=== PATIENT | male | born 1955 | race Caucasian/White ===

== ENCOUNTER 2021-03-23 13:30 | Emergency (ER) | payer MEDICAID, SELFPAY ==
[2021-03-23] VITALS (8 sets, daily range): BP systolic 101–142; BP diastolic 84–95; PULSE 110–119; RESP 16–22; TEMP 36.9–37.5; O2SAT 93–100; BMI 17.8
--- NOTE | 2021-03-23 13:40 | XR_ITS ---
WS: [id number] XR chest 1V portable [id number] REASON FOR EXAM: reduced breath sounds. FINDINGS: Mild to moderate tortuosity the thoracic aorta without aneurysmal dilatation. Normal heart size. There is calcified granulomatous disease in both hemithoraces. No active pulmonary parenchymal or ple ural disease is noted. The bony thorax is intact. Mild degenerative change in the lower and mid thoracic spine. XR/XR chest 1V portable [id number] IMPRESSION: No acute chest abnormality.
--- NOTE | 2021-03-23 13:46 | CTR_ITS ---
PROCEDURE INFORMATION: Exam: CTA Angiogram of the Abdominal Aorta and Bilateral Lower Extremities (Run-off) With IV Contrast Exam date and time: 03/23/2021 1:46 PM Age: 65 years old Clinical indication: Discoloration or erythema; Right; Patient HX: Necrosis of RT foot. Patient poor historian. ; Additional info: Right foot necrosis TECHNIQUE: Imaging protocol: CT angiogram of the abdominal aorta, pelvis and bilateral lower extremities with IV iodinated contrast. 3D rendering (Not supervised by radiologist): MIP and/or 3D reconstructed images were created by the technologist. Radiation optimization: All CT scans at this facility use at least one of these dose optimization techniques: automated exposure control; mA and/or kV adjustment per patient size (includes targeted exams where dose is matched to clinical indication); or iterative reconstruction. Contrast material: VISI 320; Contrast volume: 95 ml; Contrast route: INTRAVENOUS (IV); COMPARISON: CR XR chest 1V portable [id number] 03/23/2021 2:01 PM RADIATION DOSE METRICS: Total DLP (mGy-cm): 751.93 FINDINGS: Aorta: Mild calcified and mild to moderate noncalcified plaque. No occlusion, thrombosis, stenosis, extravasation, dissection, or aneurysm. Celiac trunk and mesenteric arteries: Mild calcified plaque. No occlusion, thrombosis, stenosis, extravasation, dissection, or aneurysm. Renal arteries: Moderate noncalcified plaque at the right renal artery origin with up to 90% stenosis. Moderate calcified plaque with 50% stenosis at the origin of the left renal artery. No occlusion, thrombosis, extravasation, dissection, or aneurysm. Right iliac arteries: Mild to moderate calcified and noncalcified plaque. Up to 50% stenosis of the posterior branch of the internal iliac artery. No occlusion, thrombosis, extravasation, dissection, or aneurysm. Right femoral/popliteal arteries: Moderate calcified and noncalcified plaque. 60% stenosis in the proximal femoral artery. Diffuse irregularity of the remainder of the femoral artery. The distal femoral artery is occluded (series 3, images 275-294). Popliteal artery is reconstituted just above the level of the knee joint. There is diffuse moderate irregularity with multiple stenoses of up to 70%. Right infrapopliteal arteries: Moderate to severe calcified and noncalcified plaque. 30% stenosis at the origin of the anterior tibial artery. Up to 95% stenosis of the tibioperoneal trunk. The peroneal artery is visualized to the lower aspect of the left calf. Moderate irregularity of the posterior tibial artery. Single-vessel runoff to the right foot via the posterior tibial artery. No occlusion, thrombosis, extravasation, dissection, or aneurysm. Left iliac arteries: Mild to moderate calcified and noncalcified plaque. 30% stenosis of the left internal iliac artery. No occlusion, thrombosis, extravasation, dissection, or aneurysm. Left femoral/popliteal arteries: Moderate calcified and mild noncalcified plaque. 85-90% stenosis of the distal left femoral artery. 60% stenosis of the popliteal artery proximally and up to 90% stenosis distally. No occlusion, thrombosis, extravasation, dissection, or aneurysm. Left infrapopliteal arteries: Moderate calcified and noncalcified plaque. 75% stenosis of the origin of the anterior tibial artery. 70% stenosis of the tibioperoneal trunk. Diffuse irregularity of the peroneal and posterior tibial arteries. Peroneal artery visualized to the distal aspect of the left calf. Single-vessel runoff to the left foot via the posterior tibial artery. No occlusion, thrombosis, extravasation, dissection, or aneurysm. Lungs: Multiple areas of pleural-parenchymal scarring in the right middle lobe and left lingula. Noncalcified nodule in the right middle lobe with an average measurement of 8 mm (series 3, image 17). Pleural space: No pleural effusion. Heart: Visualized portions of the heart are mildly enlarged. Liver: The liver is unremarkable. Gallbladder and bile ducts: The gallbladder is unremarkable. No biliary ductal dilatation. Pancreas: The pancreas is unremarkable. No pancreatic ductal dilatation. Spleen: The spleen is unremarkable. Amorphous calcification in the right adrenal gland that Adrenals: Amorphous calcification in the right adrenal gland that may represent sequela of remote trauma.The left adrenal gland is unremarkable. Kidneys and ureters: The right and left kidneys are unremarkable. The distal right and left ureters are obscured by adjacent bowel loops and soft tissue structures. The visualized portions of the ureters are unremarkable. Stomach and bowel: Increased fecal content in the colon. No gross abnormality in the stomach, small bowel, or colon. Possible bowel perforation cannot be ruled out however. Appendix: The appendix is visualized and is unremarkable. No evidence to suggest appendicitis. Bladder: Air in the lumen of the bladder and extensive air in the wall of the bladder, consistent with emphysematous cystitis. Reproductive: The prostate gland is moderately enlarged. Nonspecific parenchymal calcifications in the prostate gland. Right and left testes are unremarkable as visualized. There are calcifications in the penile shaft. Intraperitoneal space: Few small foci of air in the lower abdomen anteriorly. Lymph nodes: No lymphadenopathy. Bones/joints: Moderate degenerative changes at both the right and left hips. Multilevel degenerative changes of varying severity in the visualized spine. Soft tissues: Few small foci of subcutaneous emphysema are seen at the base of the penile shaft (series 3, image 181). More extensive soft tissue and subcutaneous emphysema in the right foot extending from the 4th and 5th toes proximally along the ventral aspect of the foot to the level of the calcaneus (series 3, images 473-526). CT/CT angio abd aorta runof [id number] IMPRESSION: 1. Few small foci of subcutaneous emphysema are seen at the base of the penile shaft More extensive soft tissue and subcutaneous emphysema in the right foot extending from the 4th and 5th toes proximally along the ventral aspect of the foot to the level of the the calcaneus. 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 2. Air in the lumen of the bladder and extensive air in the wall of the bladder, consistent with emphysematous cystitis. 3. Few small foci of air in the lower abdomen anteriorly. Etiology is uncertain, possible bowel perforation cannot be ruled out however. 4. Atherosclerotic disease of varying severity ranging from mild to severe. Occlusion of the distal right femoral artery with reconstitution of the right popliteal artery just above the knee joint. Multilevel stenoses of varying severity in the abdomen and both lower extremities. Single-vessel runoff to both feet via the posterior tibial arteries. 5. Noncalcified nodule in the right middle lobe with an average measurement of 8 mm.For patients at low risk (minimal or absent history of smoking and of other known risk factors), recommend CT Chest at 3-6 months, then consider CT Chest at 18-24 months. For patients at high risk (history of smoking or of other known risk factors), recommend CT Chest at 3-6 months, then CT Chest at 18-24 months. (Reference: Honey) 6. Incidental/nonacute findings are listed in the report. COMMENTS: THIS REPORT CONTAINS FINDINGS THAT MAY BE CRITICAL TO PATIENT CARE. The findings were verbally communicated via telephone conference with RICHARDSON Isidro at 5:59 PM CDT on 03/23/2021. The findings were acknowledged and understood. REFERENCES: Honey Dickinson, et al. Guidelines for Management of Incidental Pulmonary Nodules Detected on CT Images: From the Fleischner Society 2017. Radiology. 2017;284(1):228-243. Radiation Dose CTDIVOL = (mGy): DLP = 751.93 (mGy-cm)
[2021-03-23 14:06] LABS: Basophils # 0.1 10^3/uL (0.0-0.1); Basophils % 0.2 %; Hematocrit 37.8 % (42.0-52.0); Hemoglobin 12.5 g/dL (11.7-16.6); Lymphocytes # 1.6 10^3/uL (0.8-4.8); Lymphocytes % 5.3 %; Mean Corpuscular HGB Conc 33.1 g/dL (30.0-36.0); Mean Corpuscular Hemoglobin 29.3 pg (28.0-34.0); Mean Corpuscular Volume 88.5 fL (80-94); Mean Platelet Volume 10.9 fL (7.4-10.4); Monocytes # 1.2 10^3/uL (0.2-0.9); Neutrophils # 26.89 10^3/uL (1.8-7.7); Neutrophils % 89.7 %; Nucleated Red Blood Cells % 0 %; Platelet Count 389 10^3/cmm (130-400); Red Blood Count 4.27 10^6/uL (4.1-5.3); Red Cell Distribution Width 12.7 % (12.1-15.1)
[2021-03-23 14:16] LABS: INR 1.15 (0.8-1.2)
[2021-03-23 14:22] LABS: Lactic Sepsis W/Reflex 1.6 mmol/L (0.5-2.2)
[2021-03-23] MEDS: piperacillin-tazobactam 3.375 GM in sodium chloride 0.9% (plus) 50 ML IV (14:34)
[2021-03-23 14:35] LABS: Alanine Aminotransferase 21 U/L (0-41); Albumin Level 3.4 g/dL (3.5-5.2); Alkaline Phosphatase 170 IU/L (40-130); Anion Gap 21.5 (5-19); Aspartate Amino Transferase 23 U/L (0-40); Blood Urea Nitrogen 23 mg/dL (8-23); Calcium 9.7 mg/dL (8.5-10.5); Carbon Dioxide 19 mmol/L (22-29); Chloride 92 mmol/L (98-107); Creatine Phosphokinase 221 U/L (39-308); Globulin 4.6 g/dL (1.3-4.6); Glomerular Filtration Rate 46.7 mL/min (90-130); Glucose 326 mg/dL (65-115); NT Pro B Type Natriuretic Pept 1170 pg/mL (0-125); Osmolality Calculated 282 mOsm/kg (285-295); Potassium 4.5 mmol/L (3.5-5.1); Sodium 128 mmol/L (136-145); Thyroid Stimulating Hormone 1.51 uIU/mL (0.27-4.20); Total Bilirubin 0.6 mg/dL (0.15-1.2)
[2021-03-23] MEDS: vancomycin 1,000 MG in sodium chloride 0.9% 250 ML 250 MG IV (14:59)
--- NOTE | 2021-03-23 15:33 | PC.NURSE ---
pt vaece, power of trust and estates attorney called with update and reports she will be available by phone as needed.
[2021-03-23] MEDS: sodium chloride 0.9% 1,000 ML 999 ML IV ×2 (15:39→18:06)
[2021-03-23 15:57] LABS: SARS Covid-2 Antigen Negative (Negative)
--- NOTE | 2021-03-23 16:12 | PC.PHAR ---
PT UNABLE TO VERIFY MEDICATIONS-MEDICATIONS ENTERED ARE MEDS THAT SHOW HAVE BEEN FILLED RECENTLY ON EXT MED HISTORY-NOTES ARE MADE IN THE PHARMACY COMMENTS
[2021-03-23] MEDS: iodixanol 320 mg/mL 100mL Btl IV (16:49)
--- NOTE | 2021-03-23 18:23 | ECG_ITS ---
[facility] Test Date: 2021-03-23 Pat Name: Corey Oakley Department: Room: Gender: Male Equip Maint Eng: : 1955 Requested By: Gonzalo Miles Order Number: [id number] Barkley MD: Eliana Summers M.D. Measurements Intervals [place] Rate: 108 P: 69 OR: 169 QRS: -35 QRSD: 104 T: 90 QT: 324 QTc: 436 Interpretive Statements SINUS TACHYCARDIA MARKED LEFT AXIS DEVIATION [QRS AXIS < -30] No previous ECG available for comparison Electronically Signed On 03-23-2021 22:07:16 CDT by Eliana Summers M.D. [id number]
--- NOTE | 2021-03-23 19:02 | PC.NURSE ---
18 F Eugene catheter placed with blood return.
[2021-03-23] MEDS: clindamycin 900 MG/50 ML PREMIX 100 MG IV (19:08)
[2021-03-23 19:28] LABS: Bilirubin Urine Neg (Negative); Blood Urine 3+ (Negative); Glucose Urine UA 4+ (Normal); Ketones Urine Negative (Negative); Leukocyte Esterase Urine Negative (Negative); Nitrate Urine Negative (Negative); Protein Urine 2+ (Negative); Specific Gravity, Urine 1.005 (1.005-1.030); Urine Appearance Cloudy (CLEAR); Urine Color Red (Yellow); Urobilinogen Urine Norm (Negative); pH Urine 6.5 (5-7)
[2021-03-23 19:29] LABS: Add Urine Culture? Yes; Add Urine Microscopic? YES; Bacteria Urine 1+ /hpf; RBC Urine TOO NUMEROUS TO CNT /hpf (0-2)
--- NOTE | 2021-03-23 20:18 | W.ED.WOUNDLC ---
HPI - Wound/Laceration General: Chief Complaint: Wound/Laceration Stated Complaint: R FOOT NECROSIS Time Seen by Provider: 03/23/21 13:37 History of Present Illness: HPI narrative: The patient is a 65-year-old male with past medical history dementia who lives at home who comes to the ER by ambulance. The report is they found him with excrement and urine which she has been sitting in which looked like for a while. They also noted black right toes. He does have dry gangrene to his fourth and fifth toe and lateral aspect of his right foot. Difficult to palpate DP and PT pulses bilaterally with cool feet. There is cap refill that is 5 to 7 seconds in the toes other than the black toes. He is cachectic. He is talking and making some sense at times other times not making sense perhaps at his baseline dementia. Discussion with his medical power of personal injury attorney reveals she wants everything done for him except chemo and radiation which is on his advanced directive. He is not able to answer. She says she does not know how long the toes have look like that but checked on him approximately a month ago and they were not that way. She says he has home health workers to come check on him periodically and they have not reported to her any changes. Review of Systems General: Reports: ROS unobtainable due to mental status (Chronic dementia) Physical Exam Narrative: EXAM NARRATIVE: The patient has crusted excrement between his legs and has been there for some time. Right fourth and fifth toes and lateral aspect of the right foot nearly black with dry gangrene. Proximal to that an area of cellulitis is seen with mild swelling. He is cachectic. Tachycardic. He has chronic dementia and unknown what his baseline is but he is able to talk some but not nearly making much sense. Const: COMMON NORMALS: alert GENERAL APPEARANCE: cooperative and disheveled NUTRITIONAL APPEARANCE: cachectic ORIENTATION/CONSCIOUSNESS: Yes awake HENMT: COMMON NORMALS: normocephalic, external ears normal and Normal external nose present HEAD & SCALP: normal to inspection and normocephalic NOSE: Normal external nose present EXTERNAL EAR: Yes external ears normal MOUTH: Normal oral and palatal mucosa present THROAT: posterior oropharynx normal Eye: COMMON NORMALS: Equal, round and reactive pupils present and EOMs intact bilaterally GENERAL EYE: appearance normal, both eyes and all related structures PUPIL: Yes Equal, round and reactive pupils present Neck/C-Spine: COMMON NORMALS: full ROM, no lymphadenopathy, no meningeal signs and no JVD GENERAL: Yes normal visual inspection Lymph: LYMPHATIC: no lymphadenopathy noted Chest: COMMONS NORMALS: normal inspection of the chest and normal palpation of entire chest wall Resp: COMMON NORMALS: normal respiratory effort, No retractions, No use of accessory muscles, clear to auscultation bilaterally and percussion normal EFFORT & INSPECTION: Yes able to speak in complete sentences AUSCULTATION: clear to auscultation bilaterally PERCUSSION: percussion normal Cardio: COMMON NORMALS: no JVD, regular rhythm, S1 normal heart sound present, S2 normal heart sound present and Peripheral pulses 2+ throughout RATE: tachycardic RHYTHM: regular rhythm HEART SOUNDS: S1 normal heart sound present and S2 normal heart sound present PERIPHERAL PULSES: Peripheral pulses 2+ throughout GI: COMMON NORMALS: Normal to inspection, nondistended, normoactive bowel sounds present, Soft to palpation, non-tender and no masses INSPECTION: Yes normal to inspection PALPATION: Yes Soft to palpation : COMMON NORMALS: Yes no CVA tenderness BLADDER/KIDNEY EXAM: Yes no CVA tenderness Back/Pelvis: COMMON NORMALS: no CVA tenderness, thoracic and lumbar spine normal to inspection, no thoracic nor lumbar tenderness and thoraco-lumbar ROM normal Extremity: COMMON NORMALS: normal to inspection, full ROM, capillary refill normal, no joint enlargement and no pedal edema NARRATIVE EXTREMITY EXAM: The patient has crusted excrement between his legs and has been there for some time. Right fourth and fifth toes and lateral aspect of the right foot nearly black with dry gangrene. Proximal to that an area of cellulitis is seen with mild swelling. Difficult to palpate DP and PT pulses bilaterally. GENERAL: Yes normal exam except as noted Neuro: SENSORIUM/ORIENTATION: Yes alert MENINGEAL SIGNS: Yes no meningeal signs Psych: OTHER: Chronic dementia Skin: NARRATIVE SKIN EXAM: See extremity exam. Dry gangrene and cellulitis to the right lower extremity. Course Vital Signs: Vital signs: Vital Signs Temperature 99.5 F 03/23/21 19:30 Pulse Rate 113 H 03/23/21 19:04 Respiratory Rate 20 H 03/23/21 19:04 Blood Pressure 141/95 03/23/21 19:04 Pulse Oximetry 98 03/23/21 19:04 MDM - Wound/Laceration MDM Narrative: Medical decision making narrative: This patient suffers from chronic dementia and is severely ill. His white blood cell count came back at 30 and he was started on sepsis protocol given 2 L of fluids, vancomycin, Zosyn, and clindamycin. He had cool extremities and dry gangrene to his right fourth and fifth toe as well as the lateral aspect of his right foot. Cellulitis proximal to that with some swelling. CT angiogram with aortic runoff shows 2 different foci of necrotizing fasciitis. The first being there at the right foot and the second being at the base of his penis and perineum. He also has free air in his belly and bladder. Also it shows right femoral artery complete occlusion. The rest of the arteries in bilateral legs show significant arterial disease. This patient is severely ill. I discussed with the patient's medical power of personal injury attorney who handed me his advanced directive and says she absolutely wants everything done to care for him. I called 20 or more hospitals unsuccessfully to get him transferred. Discussed with [facility] Dr. Lawrence trauma surgeon who agrees to see him when he arrives. Dr. Solano accepts in the [facility] ED. Lab Data: Labs: Lab Results 03/23/21 03/23/21 03/23/21 Range/Units 12:50 12:50 12:50 WBC 30.0 H (4.0-10.0) 10^3/ uL RBC 4.27 (4.1-5.3) 10^6/u L Hgb 12.5 (11.7-16.6) g/dL Hct 37.8 L (42.0-52.0) % MCV 88.5 (80-94) fL MCH 29.3 (28.0-34.0) pg MCHC 33.1 (30.0-36.0) g/dL RDW 12.7 (12.1-15.1) % Plt Count 389 (130-400) 10^3/c mm MPV 10.9 H (7.4-10.4) fL Neut % (Auto) 89.7 % Lymph % (Auto) 5.3 % [place] % (Auto) 4.0 % Eos % (Auto) 0.0 % Baso % (Auto) 0.2 % Neut # (Auto) 26.89 H (1.8-7.7) 10^3/u L Lymph # (Auto) 1.6 (0.8-4.8) 10^3/u L [place] # (Auto) 1.2 H (0.2-0.9) 10^3/u L Eos # (Auto) 0.0 (0.0-0.8) 10^3/u L Baso # (Auto) 0.1 (0.0-0.1) 10^3/u L Nucleated RBC % (a uto) 0 % Nucleated RBCs # 0.0 /100WBC PT 15.10 H (12.1-14.9) SECO NDS INR 1.15 (0.8-1.2) Sodium 128 L (136-145) mmol/L Potassium 4.5 (3.5-5.1) mmol/L Chloride 92 L (98-107) mmol/L Carbon Dioxide 19 L (22-29) mmol/L Anion Gap 21.5 H (5-19) BUN 23 (8-23) mg/dL Creatinine 1.5 H (0.7-1.2) mg/dL GFR Calculation 46.7 L (90-130) mL/min Glucose 326 H (65-115) mg/dL Calculated Osmolal ity 282 L (285-295) mOsm/k g Lactic Acid (0.5-2.2) mmol/L Calcium 9.7 (8.5-10.5) mg/dL Total Bilirubin 0.6 (0.15-1.2) mg/dL AST 23 (0-40) U/L ALT 21 (0-41) U/L Alkaline Phosphata se 170 H (40-130) IU/L Creatine Kinase 221 (39-308) U/L CK-MB (CK-2) 5.0 (0-10.4) ng/mL CK-MB (CK-2) Rel I ndex (0.0-5.3) % NT-Pro-B Natriuret Pep 1170 H (0-125) pg/mL Total Protein 8.0 (6.6-8.7) g/dL Albumin 3.4 L (3.5-5.2) g/dL Globulin 4.6 (1.3-4.6) g/dL TSH 1.51 (0.27-4.20) uIU/ mL Urine Color (Yellow) Urine Appearance (CLEAR) Urine pH (5-7) Ur Specific Gravit y (1.005-1.030) Urine Protein (Negative) Urine Glucose (UA) (Normal) Urine Ketones (Negative) Urine Blood (Negative) Urine Nitrate (Negative) Urine Bilirubin (Negative) Urine Urobilinogen (Negative) mg/dL Ur Leukocyte Pina ase (Negative) Urine RBC (0-2) /hpf Urine WBC (0-5) /hpf Ur Squamous Epith Cells (0-5) /hpf Amorphous Sediment Urine Bacteria (NONE) /hpf SARS-CoV-2 Ag (Rap id) (Negative) 03/23/21 03/23/21 03/23/21 Range/Units 13:53 15:18 19:12 WBC (4.0-10.0) 10^3/ uL RBC (4.1-5.3) 10^6/u L Hgb (11.7-16.6) g/dL Hct (42.0-52.0) % MCV (80-94) fL MCH (28.0-34.0) pg MCHC (30.0-36.0) g/dL RDW (12.1-15.1) % Plt Count (130-400) 10^3/c mm MPV (7.4-10.4) fL Neut % (Auto) % Lymph % (Auto) % [place] % (Auto) % Eos % (Auto) % Baso % (Auto) % Neut # (Auto) (1.8-7.7) 10^3/u L Lymph # (Auto) (0.8-4.8) 10^3/u L [place] # (Auto) (0.2-0.9) 10^3/u L Eos # (Auto) (0.0-0.8) 10^3/u L Baso # (Auto) (0.0-0.1) 10^3/u L Nucleated RBC % (a uto) % Nucleated RBCs # /100WBC PT (12.1-14.9) SECO NDS INR (0.8-1.2) Sodium (136-145) mmol/L Potassium (3.5-5.1) mmol/L Chloride (98-107) mmol/L Carbon Dioxide (22-29) mmol/L Anion Gap (5-19) BUN (8-23) mg/dL Creatinine (0.7-1.2) mg/dL GFR Calculation (90-130) mL/min Glucose (65-115) mg/dL Calculated Osmolal ity (285-295) mOsm/k g Lactic Acid 1.6 (0.5-2.2) mmol/L Calcium (8.5-10.5) mg/dL Total Bilirubin (0.15-1.2) mg/dL AST (0-40) U/L ALT (0-41) U/L Alkaline Phosphata se (40-130) IU/L Creatine Kinase (39-308) U/L CK-MB (CK-2) (0-10.4) ng/mL CK-MB (CK-2) Rel I ndex (0.0-5.3) % NT-Pro-B Natriuret Pep (0-125) pg/mL Total Protein (6.6-8.7) g/dL Albumin (3.5-5.2) g/dL Globulin (1.3-4.6) g/dL TSH (0.27-4.20) uIU/ mL Urine Color Red (Yellow) Urine Appearance Cloudy (CLEAR) Urine pH 6.5 (5-7) Ur Specific Gravit y 1.005 (1.005-1.030) Urine Protein 2+ H (Negative) Urine Glucose (UA) 4+ H (Normal) Urine Ketones Negative (Negative) Urine Blood 3+ H (Negative) Urine Nitrate Negative (Negative) Urine Bilirubin Neg (Negative) Urine Urobilinogen Norm (Negative) mg/dL Ur Leukocyte Pina ase Negative (Negative) Urine RBC Too numerous to c nt H (0-2) /hpf Urine WBC 5-10 H (0-5) /hpf Ur Squamous Epith Cells None (0-5) /hpf Amorphous Sediment Not Reportable Urine Bacteria 1+ H (NONE) /hpf SARS-CoV-2 Ag (Rap id) Negative (Negative) Discharge Plan Discharge Patient Disposition: Transfer to ED Clinical Impression: Necrotizing fasciitis, Free intraperitoneal air, Cellulitis, Dry gangrene, Sepsis Condition: Stable Prescriptions: No Action metformin 500 mg tablet See Rx Instructions .ROUTE .COMPLEX RF: 0 aspirin 81 mg tablet,delayed release (DR/EC) 81 mg PO DAILY RF: 0 levothyroxine 25 mcg tablet 25 mcg PO DAILY RF: 0 amlodipine 10 mg tablet 10 mg PO DAILY RF: 0 pantoprazole 40 mg tablet,delayed release (DR/EC) 40 mg PO DAILY RF: 0 FeroSul 325 mg (65 mg iron) tablet 325 mg PO DAILY RF: 0 metoprolol tartrate 50 mg tablet 50 mg PO QID RF: 0 Coding Level of Care Code ED [employer]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
== END 2021-03-23 21:00 ==
PROVIDERS: Emergency Provider Family Medicine
DX: M72.6 Necrotizing fasciitis (principal); L03.115 Cellulitis of right lower limb; I96 Gangrene, not elsewhere classified; A41.9 Sepsis, unspecified organism; F03.90 Unspecified dementia, unspecified severity, without behavioral disturbance, psychotic disturbance, mood disturbance, and anxiety
CPT/HCPCS: 71045; 75635; 80053; 81001; 82550; 82553; 83605; 83880; 84443; 85025; 85610; 87040; 87086; 87426; 93005; 96365; 96367; 99285; J2543; J3370; J3490; J7030; J7050; Q9967

== ENCOUNTER 2021-04-10 18:56 | Emergency (ER) | payer MEDICAID, SELFPAY ==
[2021-04-10 19:07] VITALS: BP 131/77; PULSE 70; RESP 15; TEMP 36.6; O2SAT 95; BMI 18.8
--- NOTE | 2021-04-10 19:21 | W.ED.GENADLT ---
HPI - General Adult General: Chief complaint: General Medical Stated complaint: CLOGGED PICC LINE Time Seen by Provider: 04/10/21 19:16 History of Present Illness: HPI narrative: 65-year-old male patient comes in today from [facility] for evaluation of clogged PICC line. Patient has dementia and has a wound infection to his right lower leg that he is receiving IV antibiotic therapy. Patient is alert and is oriented only to self. Review of Systems General: Reports: 10 or more systems reviewed and unremarkable except in HPI and below Finesse/Lymph: Reports: other (Dysfunctional PICC line) Physical Exam Const: COMMON NORMALS: no acute distress and patient oriented x3 GENERAL APPEARANCE: cooperative HENMT: COMMON NORMALS: normocephalic and Normal external nose present HEAD & SCALP: normal to inspection and normocephalic NOSE: Normal external nose present MOUTH: Normal oral and palatal mucosa present Eye: GENERAL EYE: appearance normal, both eyes and all related structures Neck/C-Spine: COMMON NORMALS: full ROM Lymph: LYMPHATIC: no lymphadenopathy noted Chest: COMMONS NORMALS: normal inspection of the chest Resp: COMMON NORMALS: normal respiratory effort EFFORT & INSPECTION: Yes able to speak in complete sentences Cardio: COMMON NORMALS: regular rate and regular rhythm RATE: regular rate RHYTHM: regular rhythm GI: COMMON NORMALS: non-tender : COMMON NORMALS: Yes no CVA tenderness BLADDER/KIDNEY EXAM: Yes no CVA tenderness Back/Pelvis: COMMON NORMALS: no CVA tenderness and thoracic and lumbar spine normal to inspection Extremity: NARRATIVE EXTREMITY EXAM: PICC line site to the right arm has no redness or other abnormality. Neuro: COMMON NORMALS: patient oriented x3 and moves all extremities Psych: COMMON NORMALS: mental status grossly normal and cooperative Skin: COMMON NORMALS: no rashes or lesions noted GENERAL SKIN EXAM: no rashes or lesions noted Course ED course: 2199, we have been able to get 1 port functioning on the PICC line we are attempting a repeat dosing of Cathflo for the second port. 2229, we were able to get the second port flushed and usable. We discussed this with alf they wanted us to go ahead and infuse cefepime 2 g and give patient his evening dose of insulin which is Lantus 9 units. Patient will then be transported back to the alf. Vital Signs: Vital signs: Vital Signs Temperature 97.9 F 04/10/21 19:07 Pulse Rate 66 04/10/21 20:20 Respiratory Rate 18 04/10/21 20:20 Blood Pressure 131/77 04/10/21 19:07 Pulse Oximetry 100 04/10/21 20:20 MDM - General Adult MDM Narrative: Medical decision making narrative: Patient was sent here from [facility] in [facility] for an occluded PICC line. Patient has a PICC line in place for the treatment of his gangrene to his foot. On exam PICC line site appears clean without any signs of redness or infection. Lungs were clear to auscultation. Abdomen is soft nontender. Vital signs were normal. Differential diagnosis includes occluded PICC line, gangrene of the foot, diabetes mellitus. PICC line was able to be unoccluded with alteplase. Patient was infused his antibiotic. Patient was given a hydrocodone while in the emergency room for his pain. Patient was also noted to have skin breakdown to the buttocks and was treated with zinc oxide. Patient will be returned to the alf and continue with routine care. 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
[2021-04-10 20:20] VITALS: PULSE 66; RESP 18; O2SAT 100
--- NOTE | 2021-04-10 20:24 | PC.NURSE ---
pharmacy called for medication and consult, will bring to ed
[2021-04-10] MEDS: alteplase 1 mg/mL SDV 2 mL 2 MG INTRACATH ×2 (20:35→20:36)
[2021-04-10] MEDS: water for injection-sterile 10 ML (20:35)
[2021-04-10] MEDS: HYDROcodone-acetaminophen 5-325 mg Tablet 1 TAB PO (20:38)
--- NOTE | 2021-04-10 21:04 | PC.NURSE ---
red lumen on picc line, aspirates 10 cc of blood for waste then 30ml of NS flushed without difficulty, purple lumen still does not aspirate blood at this time. Primary RN and [facility] updated.
--- NOTE | 2021-04-10 22:10 | PC.NURSE ---
while cleaning pt bowel movement keisha lambert rn and this nurse changed a dressing on his buttocks where he had a wound. skilled nursing states they are aware and thats what hes on antibiotics for. however, asked shramila rucker to order cream for his scrotum as well.
[2021-04-10 22:30] LABS: Glucose Point of Care 184 mg/dL (70-110)
[2021-04-10] MEDS: cefepime 2,000 MG in sodium chloride 0.9% (plus) 50 ML 100 MG IV (22:49)
[2021-04-10] MEDS: insulin glargine 100 units/1 mL 9 UNIT SUBCUT (23:34)
[2021-04-10 23:59] VITALS: PULSE 66; RESP 18; TEMP 36.6; O2SAT 99
[2021-04-11 02:00] VITALS: BP 148/95; PULSE 81; RESP 17; O2SAT 100
--- NOTE | 2021-04-11 03:54 | PC.NURSE ---
[facility] called and updated about patients logisticare ride back to [facility] won't be here until about 0800. Staff was asked about patients dietary restrictions. Patient is a pureed diet, and medications need to be crushed and given in applesauce.
--- NOTE | 2021-04-11 04:25 | PC.NURSE ---
pt rounded on at this time. covered up to top of head and sleeping at this time.
[2021-04-11 04:26] VITALS: BP 154/91; O2SAT 96
[2021-04-11 06:23] VITALS: BP 135/87; O2SAT 100
[2021-04-11 06:51] LABS: Glucose Point of Care 163 mg/dL (70-110)
== END 2021-04-11 06:39 | disposition home or self-care (01) ==
PROVIDERS: Emergency Provider Nurse Practitioner Family
DX: T82.594A Other mechanical complication of infusion catheter, initial encounter (principal); E11.52 Type 2 diabetes mellitus with diabetic peripheral angiopathy with gangrene; I96 Gangrene, not elsewhere classified; F03.90 Unspecified dementia, unspecified severity, without behavioral disturbance, psychotic disturbance, mood disturbance, and anxiety; Z79.4 Long term (current) use of insulin; Y83.8 Other surgical procedures as the cause of abnormal reaction of the patient, or of later complication, without mention of misadventure at the time of the procedure
CPT/HCPCS: 36416; 82962; 96365; 96372; 99284; J0692; J1815; J2997